=== PATIENT | female | born 1990 | race Caucasian/White ===

== ENCOUNTER 2021-05-24 08:36 | Inpatient (IN) ==
[~2021-05-24 08:36] MED LIST: *HR* Nalbuphine 10 MG/ML AMPUL IV PRN; Azithromycin 500 MG in 0.9 % Sodium Chloride 250 ML IVPB PRN; EPHEDrine 50 MG/ML VIAL IVP PRN; Famotidine 20 MG/2 ML VIAL IVP PRN; Lidocaine 1% 20 ML MDV INFILT PRN; Metoclopramide 10 MG/2 ML VIAL IVP PRN; Naloxone 0.4 MG/ML INJ IVP PRN; Ondansetron 4 MG/2 ML VIAL IVP PRN
[2021-05-24 08:54] LABS: Basophils % 0.3 %; Eosinophils % 0.1 %; Hematocrit 39.3 % (35.3-44.9); Hemoglobin 13.2 g/dL (11.5-15.4); Immature Granulocytes % 0.6 % (0-4); Lymphocytes # 2.4 K/mcL (0.6-4.6); Lymphocytes % 17.8 %; Mean Corpuscular HGB Conc 33.6 g/dL (31.6-35.5); Mean Corpuscular Hemoglobin 30.1 pg (28.0-33.3); Mean Corpuscular Volume 89.5 fL (83.0-100.0); Mean Platelet Volume 9.2 fL (9.4-12.4); Monocytes # 0.9 K/mcL (0.0-1.3); Monocytes % 6.8 %; Neutrophils # 10.2 K/mcL (1.6-8.9); Platelet Count 217 K/mcL (140-400); Red Blood Count 4.39 M/mcL (3.82-4.97); Red Cell Distribution Width 12.8 % (11.5-14.5); Segmented Neutrophils % 74.4 %; White Blood Count 13.7 K/mcL (4.3-11.1)
[2021-05-24] MEDS ORDERED: Ringers Solution, Lactated 1,000 ML ONE (09:06)
[2021-05-24] MEDS: Ringers Solution, Lactated 1,000 ML IVC SCH ×2 (09:20→12:44)
[2021-05-24 09:32] LABS: Influenza A PCR Negative (Negative); Influenza B PCR Negative (Negative); Resp. Syncytial Virus PCR Negative (Negative); SARS-CoV-2 by PCR (In House) Negative (Negative)
[2021-05-24] MEDS: Epidural Premix (fent/bupiv) 110 ML EP SCH ×2 (11:54→18:45)
[2021-05-24 12:22] LABS: Amphetamine Screen,Urine Negative ng/mL (Cutoff=1000); Barbiturate Screen,Urine Negative ng/mL (Cutoff=200); Benzodiazepines Screen,Urine Negative ng/mL (Cutoff=200); Cannabinoid Screen,Urine Negative ng/mL (Cutoff = 50); Cocaine Screen,Urine Negative ng/mL (Cutoff= 300); Opiate Screen,Urine Negative ng/mL (Cutoff=300); Phencyclidine Screen,Urine Negative ng/mL (Cutoff=25)
[2021-05-24] MEDS ORDERED: Oxytocin 30 UNIT/503 ML BAG IVC SCH ×2 (14:45→17:58)
[2021-05-24] MEDS ORDERED: Ibuprofen 600 MG TABLET PO ONE (16:26)
[2021-05-24] MEDS ORDERED: Ondansetron ODT 4 MG TAB.RAPDIS SL PRN (17:58)
[2021-05-24] MEDS ORDERED: Measles/Mumps/Rubella Vacc 0.5 ML VIAL SQ PRN (17:58)
[2021-05-24] MEDS ORDERED: Lanolin 7 G OINT...G. TP PRN (17:58)
[2021-05-24] MEDS ORDERED: Benzocaine/Menthol 56 GM AEROSOL SPRAY TP PRN (17:58)
[2021-05-24] MEDS ORDERED: Ibuprofen 600 MG TABLET PO SCH (18:59)
[2021-05-24] MEDS: Acetaminophen 325 MG TABLET PO SCH (20:56)
[2021-05-25] MEDS: Acetaminophen 325 MG TABLET PO SCH ×2 (04:13→11:01)
[2021-05-25 04:37] LABS: Basophils % 0.1 %; Eosinophils # 0.1 K/mcL (0.0-0.6); Eosinophils % 0.2 %; Hematocrit 31.2 % (35.3-44.9); Immature Granulocytes % 0.7 % (0-4); Lymphocytes % 14.8 %; Mean Corpuscular HGB Conc 33.3 g/dL (31.6-35.5); Mean Corpuscular Hemoglobin 30.2 pg (28.0-33.3); Mean Corpuscular Volume 90.7 fL (83.0-100.0); Mean Platelet Volume 9.5 fL (9.4-12.4); Monocytes # 1.4 K/mcL (0.0-1.3); Monocytes % 6.9 %; Neutrophils # 15.5 K/mcL (1.6-8.9); Platelet Count 167 K/mcL (140-400); Red Blood Count 3.44 M/mcL (3.82-4.97); Segmented Neutrophils % 77.3 %; White Blood Count 20.1 K/mcL (4.3-11.1)
[2021-05-25 04:56] LABS: Hemoglobin 10.4 g/dL (11.5-15.4)
[2021-05-25 07:25] VITALS: BP 111/67; PULSE 66; TEMP 98.2; O2SAT 100
[2021-05-25] MEDS ORDERED: Prenatal Vit/FA 1 EACH TABLET PO SCH (09:00)
== END 2021-05-25 17:17 | disposition home or self-care (01) | DRG 806 ==
LOC: 1NENULAB → 1NENUOBS 18:15
PROVIDERS: ADMIT Obstetrics & Gynecology; ATTEND Obstetrics & Gynecology